=== PATIENT | male | born 1940 | race Caucasian/White ===

== ENCOUNTER → 2016-10-30 | Outpatient (CLI) | payer MEDICARE ==
[~2016-10-30] MED LIST: ALBU18HF INH; ASCO500T8 PO; ASPI-496 PO; ATOR40TA78 PO; CAPS30CR TP; CHOL200040 PO; CLON0.5T20 PO; CYAN100028 PO; CYCL-259 PO; DIFL5DRO EACHEYE; DONE5TAB30 PO; ERYT250C8 PO; FLUT16SP NAS; Ferrous Sulfate PO; GABA300C10 PO; GLYB5TAB3 PO; HYDR-3240 PO; INSU100C5 SC; INSU100I13 SC; METF10002 PO; METF500T PO; MOME158. PO; MOME30SO2 NAS; OMEP-110 PO; OXYC1TAB9 PO; PARO30TA3 PO; PRIM50TA PO; PROP60CA PO; TERA2CAP3 PO; VALS160T3 PO; VITA1TAB3 PO; [UNRECOGNIZED DRUG - CODE] TP
== END | disposition home or self-care (01) ==
LOC: LAB 14:55
PROVIDERS: ATTEND Family Medicine
DX: E87.5 Hyperkalemia (principal)
CPT/HCPCS: 36415; 84132

== ENCOUNTER 2017-01-09 22:35 | Observation (INO) | payer MEDICARE ==
[~2017-01-09] VITALS: Ht 172.7 cm; Wt 66.8 kg
[2017-01-09] MEDS ORDERED: SODIUM CHLORIDE 0.9% 1,000 ML IV ONE (22:47)
[2017-01-09] MEDS ORDERED: ASPI-496 PO (22:56)
[2017-01-09] MEDS ORDERED: SILD25TA PO (22:56)
[2017-01-09] MEDS ORDERED: TAMS-11 PO (22:56)
[2017-01-09] MEDS ORDERED: TIOT18CA INH (22:56)
[2017-01-09] MEDS ORDERED: SODIUM CHLORIDE FLUSH 10ML SYR IVF ONE (23:00)
[2017-01-09] MEDS ORDERED: MORPHINE SULFATE 4 MG/ML, 1ML IVPush PRN (23:00)
[2017-01-09] MEDS ORDERED: ONDANSETRON 2MG/ML, 2ML IVPush ONE (23:00)
[2017-01-09] MEDS ORDERED: PLEASE ENTER HEIGHT AND WEIGHT MC SCH (23:30)
[2017-01-09] MEDS ORDERED: MORPHINE SULFATE 4 MG/ML, 1ML ONE (23:31)
[2017-01-09] MEDS ORDERED: ONDANSETRON 2MG/ML, 2ML ONE (23:31)
[2017-01-09 23:40] LABS: ASPARTATE AMINO TRANSFERASE 9 U/L (15-37); BLOOD UREA NITROGEN 59 mg/dL (7-18)
[2017-01-09] MEDS ORDERED: INSU100V8 SQ (23:41)
[2017-01-09 23:44] LABS: IS PT STATUS REG ER OR PRE ER? YES
[2017-01-10] MEDS ORDERED: morphine SULFATE 10 MG/ML, 1ML IVPush PRN (00:30)
[2017-01-10] MEDS ORDERED: CYCLOBENZAPRINE 10 MG TABLET PO PRN (00:30)
[2017-01-10] MEDS ORDERED: POLYETHYLENE GLYCOL 17 GM PACKET PO PRN (00:30)
[2017-01-10] MEDS ORDERED: NITROGLYCERIN 0.4 MG BOTTLE (25 TABS) SL PRN (00:30)
[2017-01-10] MEDS ORDERED: BISACODYL 10 MG SUPP PR PRN (00:30)
[2017-01-10] MEDS ORDERED: DOCUSATE 100 MG CAPSULE PO PRN (00:30)
[2017-01-10] MEDS ORDERED: LABETALOL 5MG/ML 40ML VIAL IVPush PRN (00:30)
[2017-01-10] MEDS ORDERED: HYDROcodone/APAP 5/325 TABLET PO PRN (00:30)
[2017-01-10] MEDS ORDERED: ONDANSETRON 2MG/ML, 2ML IVPush PRN (00:30)
[2017-01-10] MEDS ORDERED: ACETAMINOPHEN 325 MG TABLET PO PRN (00:30)
[2017-01-10] MEDS ORDERED: GLUCAGON 1 MG IM PRN (01:00)
[2017-01-10] MEDS ORDERED: DEXTROSE 4 GM TAB.CHEW PO PRN (01:00)
[2017-01-10] MEDS ORDERED: DEXTROSE 50%, 50ML SYRINGE IVPush PRN (01:00)
[2017-01-10 01:06] VITALS: BP 134/56
[2017-01-10] MEDS: D5%-0.45% NACL 1,000 ML IV SCH ×2 (01:18→10:25)
[2017-01-10] MEDS: HEPARIN 5,000 UNITS/ML, 1ML SQ SCH ×2 (01:28→09:00)
[2017-01-10 02:46] VITALS: BP 134/56
[2017-01-10 02:56] LABS: IS PT STATUS REG ER OR PRE ER? NO
[2017-01-10] MEDS ORDERED: IPRATROPIUM 0.5 MG/2.5 ML INHA NPPB SCH (03:00)
[2017-01-10] MEDS ORDERED: ASPIRIN 325 MG TABLET EC PO SCH (06:00)
[2017-01-10 08:12] VITALS: BP 115/62
[2017-01-10] MEDS ORDERED: REGADENOSON 0.4 MG/5 ML SYRINGE ONE (08:30)
[2017-01-10 08:53] LABS: IS PT STATUS REG ER OR PRE ER? NO
[2017-01-10] MEDS: INSULIN ASPART 100 UNITS/ML, PEN SQ-INSULIN SCH ×3 (08:58→16:11)
[2017-01-10] MEDS ORDERED: CYANOCOBALAMIN 1,000 MCG TABLET PO SCH (09:00)
[2017-01-10] MEDS ORDERED: TAMSULOSIN 0.4 MG CAP.ER.24H PO SCH (09:00)
[2017-01-10] MEDS ORDERED: SODIUM CHLORIDE FLUSH 10ML SYR IVF SCH (09:00)
[2017-01-10] MEDS ORDERED: VALSARTAN 160 MG TABLET PO SCH (09:00)
[2017-01-10] MEDS ORDERED: PROPRANOLOL 60 MG CAP.SA.24H PO SCH (09:00)
[2017-01-10] MEDS: FERROUS SULFATE 325 MG TABLET PO SCH ×2 (09:09→12:00)
[2017-01-10] MEDS: GABAPENTIN 300 MG CAPSULE PO SCH ×2 (09:10→16:05)
[2017-01-10 11:06] LABS: BLOOD UREA NITROGEN 49 mg/dL (7-18)
[2017-01-10 13:17] VITALS: BP 120/71
[2017-01-10] MEDS ORDERED: DONEPEZIL 5 MG TABLET PO SCH (21:00)
[2017-01-10] MEDS ORDERED: ATORVASTATIN 20 MG TABLET PO SCH (21:00)
[2017-01-10] MEDS ORDERED: PAROXETINE 10 MG TABLET PO SCH (21:00)
[2017-01-10] MEDS ORDERED: PRIMIDONE 50 MG TABLET PO SCH (21:00)
== END 2017-01-10 17:24 | disposition home or self-care (01) ==
LOC: ED 01-10 00:15 → EDIP 01-10 00:32 → INTOOBSV 01-10 00:32 → 5SO 01-10 00:51
PROVIDERS: ADMIT Internal Medicine
DX: R07.89 Other chest pain (principal); I13.10 Hypertensive heart and chronic kidney disease without heart failure, with stage 1 through stage 4 chronic kidney disease, or unspecified chronic kidney disease; E11.22 Type 2 diabetes mellitus with diabetic chronic kidney disease; N18.9 Chronic kidney disease, unspecified; D63.8 Anemia in other chronic diseases classified elsewhere; R09.02 Hypoxemia; E78.5 Hyperlipidemia, unspecified; C64.9 Malignant neoplasm of unspecified kidney, except renal pelvis; E11.649 Type 2 diabetes mellitus with hypoglycemia without coma; I45.10 Unspecified right bundle-branch block; N17.0 Acute kidney failure with tubular necrosis; Z85.828 Personal history of other malignant neoplasm of skin; Z79.4 Long term (current) use of insulin; Z85.528 Personal history of other malignant neoplasm of kidney
CPT/HCPCS: 36415; 71010; 76770; 78452; 80048; 80053; 81003; 82436; 82570; 82728; 82962; 83540; 83550; 83880; 84133; 84300; 84466; 84484; 85025; 85610; 85730; 93005; 93017; 96361; 96372; 96374; 96375; 96376; 99285; A9502; C9898; G0378; J1644; J1815; J2405; J2785

== ENCOUNTER 2018-05-14 16:19 | Emergency (ER) | payer MEDICARE ==
[~2018-05-14] VITALS: Ht 172.7 cm; Wt 78.0 kg
[~2018-05-14 16:19] MED LIST changes: -DONE5TAB30 PO; +DONE5TAB52 PO; +INSU100V8 SQ; +OXYC-432 PO; -OXYC1TAB9 PO; +SILD25TA PO; +TAMS-11 PO; +TIOT18CA INH
[2018-05-14 17:35] LABS: BASOPHILS # (AUTO) 0.03 x10^3/uL (0-0.1); BASOPHILS % (AUTO) 0 % (0-1); EOSINOPHILS # (AUTO) 0.25 x10^3/uL (0-0.4); EOSINOPHILS % (AUTO) 4 % (1-7); LYMPHOCYTES # (AUTO) 1.28 x10^3/uL (1-3.4); LYMPHOCYTES % (AUTO) 21 % (22-44); MD NO; MEAN CORPUSCULAR HEMOGLOBIN 29.6 pg (27.5-34.5); MEAN CORPUSCULAR HGB CONC 33.2 g/dL (33.2-36.2); MEAN CORPUSCULAR VOLUME 89.2 fL (81-97); MEAN PLATELET VOLUME 9.3 fL (7.4-10.4); MONOCYTES # (AUTO) 0.45 x10^3/uL (0.2-0.8); MONOCYTES % (AUTO) 8 % (2-9); NEUTROPHILS # (AUTO) 4.06 x10^3/uL (1.8-6.8); NEUTROPHILS % (AUTO) 67 % (42-75); PLATELET COUNT 187 x10^3/uL (130-400); RED BLOOD COUNT 3.83 x10^6/uL (4.38-5.82)
[2018-05-14 17:48] LABS: ALANINE AMINOTRANSFERASE 18 U/L (12-78); ANION GAP 9 mmol/L (5-15); CALCIUM 8.5 mg/dL (8.5-10.1); CHLORIDE 104 mmol/L (98-107); CREATININE 1.88 mg/dL (0.7-1.3)
[2018-05-14 17:49] LABS: CULTURE INDICATED? NO
[2018-05-14 17:53] LABS: ALKALINE PHOSPHATASE 147 U/L (45-117); BILIRUBIN,TOTAL 0.6 mg/dL (0.2-1.0); TOTAL PROTEIN 6.8 g/dL (6.4-8.2); TROPONIN I < 0.015 ng/mL (0.000-0.045)
[2018-05-14 18:06] LABS: MICROSCOPIC INDICATED
[2018-05-14] MEDS ORDERED: SODIUM CHLORIDE 0.9% 1,000ML IVBOLUS ONE (18:30)
[2018-05-14] MEDS ORDERED: SODIUM CHLORIDE FLUSH 10ML SYR IVF ONE (18:30)
[2018-05-14 19:03] VITALS: BP 147/55
== END 2018-05-14 20:13 | disposition home or self-care (01) ==
LOC: ED 19:34
DX: K85.00 Idiopathic acute pancreatitis without necrosis or infection (principal); E11.65 Type 2 diabetes mellitus with hyperglycemia; E11.22 Type 2 diabetes mellitus with diabetic chronic kidney disease; I12.9 Hypertensive chronic kidney disease with stage 1 through stage 4 chronic kidney disease, or unspecified chronic kidney disease; N18.2 Chronic kidney disease, stage 2 (mild); Z87.891 Personal history of nicotine dependence
CPT/HCPCS: 36415; 74022; 74176; 80053; 81001; 81003; 83605; 83690; 84484; 85025; 93005; 96360; 99285; J7030

== ENCOUNTER 2018-06-24 16:12 | Emergency (ER) | payer MEDICARE ==
[~2018-06-24] VITALS: Ht 172.7 cm; Wt 82.0 kg
[2018-06-24 16:26] VITALS: BP 143/74
[2018-06-24] MEDS ORDERED: METHOCARBAMOL 750 MG TABLET ONE (16:46)
[2018-06-24] MEDS ORDERED: METHOCARBAMOL 750 MG TABLET PO ONE (17:00)
== END 2018-06-24 18:31 | disposition home or self-care (01) ==
LOC: ED 18:23
DX: S76.012A Strain of muscle, fascia and tendon of left hip, initial encounter (principal); E11.9 Type 2 diabetes mellitus without complications; I10 Essential (primary) hypertension; W18.00XA Striking against unspecified object with subsequent fall, initial encounter; Y93.89 Activity, other specified; Y92.89 Other specified places as the place of occurrence of the external cause; Y99.8 Other external cause status
CPT/HCPCS: 99283

== ENCOUNTER 2018-06-26 11:05 | Emergency (ER) | payer MEDICARE ==
[~2018-06-26] VITALS: Ht 172.7 cm; Wt 82.5 kg
[2018-06-26] MEDS ORDERED: KETOROLAC 30 MG/1 ML ONE (11:43)
[2018-06-26] MEDS ORDERED: KETOROLAC 30 MG/1 ML IM ONE (12:00)
[2018-06-26 12:23] VITALS: BP 116/61
== END 2018-06-26 12:25 | disposition home or self-care (01) ==
LOC: ED 12:15
DX: M25.552 Pain in left hip (principal); M79.652 Pain in left thigh; G89.29 Other chronic pain; E11.9 Type 2 diabetes mellitus without complications; I10 Essential (primary) hypertension; Z87.891 Personal history of nicotine dependence
CPT/HCPCS: 96372; 99283; J1885

== ENCOUNTER 2018-07-23 22:35 | Emergency (ER) | payer MEDICARE ==
[~2018-07-23] VITALS: Ht 172.7 cm; Wt 82.5 kg
--- NOTE | 2018-07-23 22:49 | NUR ---
REPORT REC FROM [facility], REPORT TO PRIMARY NURSE ELIZABETH
--- NOTE | 2018-07-23 22:55 | NUR ---
assumed care of pt. report from Iveth SIFUENTES. pt [place] from home c/o N/V/D x1 day. pt states that he thiks it is caused by some "bad liverwurst" that he had this morning. pt is A&O x4. 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 pt denies pain at this time. pt has mulitple requests for blanket warmer and sprite as well as positioning. no family at bedside. tech at bedside for IV start.
--- NOTE | 2018-07-23 23:15 | NUR ---
Dr Roca at bedside for eval. oral swabs given for comfort
[2018-07-23] MEDS ORDERED: FAMOTIDINE 20 MG TABLET ONE (23:29)
[2018-07-23] MEDS ORDERED: PROMETHAZINE 25 MG/ML, 1ML ONE (23:29)
[2018-07-23] MEDS ORDERED: DICYCLOMINE 10 MG/ML, 2ML ONE (23:29)
[2018-07-23] MEDS ORDERED: ONDANSETRON ODT 4 MG ONE (23:30)
[2018-07-23] MEDS ORDERED: DICYCLOMINE 10 MG/ML, 2ML IM ONE (23:30)
[2018-07-23] MEDS ORDERED: ONDANSETRON ODT 4 MG PO ONE (23:30)
[2018-07-23] MEDS ORDERED: FAMOTIDINE 20 MG TABLET PO ONE (23:30)
[2018-07-23] MEDS ORDERED: PROMETHAZINE 25 MG/ML, 1ML IM ONE (23:30)
--- NOTE | 2018-07-23 23:35 | NUR ---
EKG at bedside
[2018-07-23 23:45] LABS: BASOPHILS % (AUTO) 0 % (0-1); EOSINOPHILS % (AUTO) 2 % (1-7); LYMPHOCYTES % (AUTO) 2 % (22-44); MD NO; MEAN CORPUSCULAR HEMOGLOBIN 29.6 pg (27.5-34.5); MEAN CORPUSCULAR HGB CONC 33.6 g/dL (33.2-36.2); MEAN PLATELET VOLUME 8.8 fL (7.4-10.4); MONOCYTES % (AUTO) 5 % (2-9); NEUTROPHILS # (AUTO) 8.25 x10^3/uL (1.8-6.8); NEUTROPHILS % (AUTO) 91 % (42-75); PLATELET COUNT 216 x10^3/uL (130-400); RED BLOOD COUNT 4.29 x10^6/uL (4.38-5.82); RED CELL DISTRIBUTION WIDTH 14.8 % (9.4-14.8)
--- NOTE | 2018-07-23 23:52 | NUR ---
pt has been medicated per order. positioning and lights diommed per pt request. no vomiting or diarrhea noted since admit
[2018-07-23 23:57] LABS: ALANINE AMINOTRANSFERASE 16 U/L (12-78); ALBUMIN 3.6 g/dL (3.4-5.0); ANION GAP 5 mmol/L (5-15); CALCIUM 8.6 mg/dL (8.5-10.1); CHLORIDE 107 mmol/L (98-107); CREATININE 1.59 mg/dL (0.7-1.3)
[2018-07-23 23:59] LABS: ALKALINE PHOSPHATASE 155 U/L (45-117); BILIRUBIN,TOTAL 0.7 mg/dL (0.2-1.0); TOTAL PROTEIN 7.2 g/dL (6.4-8.2)
--- NOTE | 2018-07-24 00:20 | NUR ---
attempted to enter room to re-assess pt and deliver PO fluids and snacks that pt requested. pt sleeping. no apparent distress
--- NOTE | 2018-07-24 01:16 | NUR ---
no changes. pt sleeping. chart up for MD recheck. report to Shavon SIFUENTES
--- NOTE | 2018-07-24 02:55 | NUR ---
JOSE RN: PT AMBULATED SAFELY AROUND ROOM. PT DISCHARGED.
[2018-07-24 02:56] VITALS: BP 109/50
== END 2018-07-24 02:59 | disposition home or self-care (01) ==
LOC: ED 22:55
DX: K52.89 Other specified noninfective gastroenteritis and colitis (principal); E86.0 Dehydration; R94.4 Abnormal results of kidney function studies; I10 Essential (primary) hypertension; E11.9 Type 2 diabetes mellitus without complications; Z87.891 Personal history of nicotine dependence
CPT/HCPCS: 36415; 80053; 83690; 85025; 93005; 96372; 99284; J0500; J2550; Q0162